=== PATIENT | male | born 1965 | race Caucasian/White ===

== ENCOUNTER 2020-05-19 13:28 | Emergency (ER) | payer OTHER ==
[~2020-05-19] VITALS: Ht 175.3 cm; Wt 80.7 kg
--- NOTE | 2020-05-19 13:53 | NUR ---
PT AMBULATORY TO ED. C/O BUE PARESTHESIA, PAIN, HAVING A HARD TIME GRIPPING WATER BOTTLE X 2 1/2 WEEKS UNRELIEVE W/ OTC PAIN . PT DENIES ANY OTHER COMPLAINT AT THIS TIME AND STATES HE HAD A BLOOD DRAW DONE YESTERDAY. STABLE VITALS. NO NEURO DEFICIT NOTED. AWAITING MD ANN.
--- NOTE | 2020-05-19 15:04 | NUR ---
DR BROOKS AT BEDSIDE FOR EVAL.
[2020-05-19] MEDS ORDERED: HYDROCODONE/APAP 5/325MG TABLET ONE (15:12)
[2020-05-19] MEDS ORDERED: CYCLOBENZAPRINE 10 MG TABLET ONE (15:12)
[2020-05-19] MEDS ORDERED: HYDROCODONE/APAP 5/325MG TABLET PO ONE (15:30)
[2020-05-19] MEDS ORDERED: CYCLOBENZAPRINE 10 MG TABLET PO ONE (15:30)
[2020-05-19] MEDS ORDERED: GABA-532 PO ×2 (16:34→16:37)
[2020-05-19] MEDS ORDERED: HYDR-4275 PO ×2 (16:34→16:37)
--- NOTE | 2020-05-19 16:44 | NUR ---
Patient discharged to home in stable condition. Written and verbal after care instructions given. Patient verbalizes understanding of instruction.
[2020-05-19 16:48] VITALS: BP 132/74
== END 2020-05-19 16:49 | disposition home or self-care (01) ==
LOC: ER 13:34
DX: M54.12 Radiculopathy, cervical region (principal); F17.210 Nicotine dependence, cigarettes, uncomplicated
CPT/HCPCS: 72125-TC